=== PATIENT | female | born 1995 | race African-American/Black ===

== ENCOUNTER 2024-04-09 09:55 | Outpatient (CLI) | payer OTHER | END 2024-04-09 09:56 | disposition home or self-care (01) | LOC: BICULT 09:55 | PROVIDERS: ATTEND Advanced Practice Midwife | DX: O09.92 Supervision of high risk pregnancy, unspecified, second trimester (principal); Z3A.21 21 weeks gestation of pregnancy | CPT/HCPCS: 76805 ==

== ENCOUNTER 2024-07-17 09:00 | Day surgery (SDC) | payer OTHER ==
[2024-07-17] MEDS ORDERED: Acetaminophen 500 MG TAB ONE (09:30)
[2024-07-17] MEDS: Acetaminophen 500 MG TAB PO SCH (09:32)
[2024-07-17] MEDS: Iron Sucrose Complex 500 MG in Sodium Chloride 0.9% 250 ML 250 ML IVPB SCH (09:58)
[2024-07-17 14:16] VITALS: BP 102/59; TEMP 98.6
== END 2024-07-17 15:01 | disposition home or self-care (01) ==
LOC: ONC/OP 09:00
PROVIDERS: ATTEND Family Medicine
DX: O99.019 Anemia complicating pregnancy, unspecified trimester (principal); Z3A.00 Weeks of gestation of pregnancy not specified
CPT/HCPCS: 96365; 96366; J1756; J7050